=== PATIENT | female | born 1990 | race Caucasian/White ===

== ENCOUNTER 2016-10-13 12:57 | Emergency (ER) | payer OTHER ==
[~2016-10-13] VITALS: Ht 157.5 cm; Wt 71.4 kg
[2016-10-13 14:30] LABS: BASOPHIL % 0.4 % (0-2); PLATELET COUNT 204 x10^3mcL (130-400); RED CELL DISTRIBUTION WIDTH 13.3 % (11.5-14.5)
[2016-10-13 14:39] LABS: CALCIUM 8.6 mg/dL (8.5-10.1); CARBON DIOXIDE 25.9 mmol/L (21-32); CHLORIDE SERUM 107 mmol/L (98-107); CREATININE SERUM 0.6 mg/dL (0.6-1.0); GFR1 > 60 mL/min; GLUCOSE SERUM 103 mg/dL (74-106); POTASSIUM SERUM 3.4 mmol/L (3.5-5.1); SODIUM SERUM 140 mmol/L (136-145)
[2016-10-13 14:43] LABS: ALKALINE PHOSPHATASE 60 U/L (46-116); ALT/SGPT 11 U/L (14-59); AMYLASE 65 U/L (25-115); AST/SGOT 14 U/L (15-37); BILIRUBIN TOTAL 0.97 mg/dL (0.20-1.00); LIPASE 113 IU/L (73-393); TOTAL PROTEIN, SERUM 7.1 g/dL (6.4-8.2)
[2016-10-13 14:46] LABS: ALBUMIN 3.3 g/dL (3.4-5.0)
[2016-10-13 15:37] VITALS: BP 113/67
== END 2016-10-13 15:37 | disposition home or self-care (01) ==
LOC: ED 12:57
PROVIDERS: Specialist
DX: R58 Hemorrhage, not elsewhere classified (principal)
CPT/HCPCS: 83880; J2405; J7030

== ENCOUNTER 2016-11-07 20:05 | Emergency (ER) | payer OTHER ==
[2016-11-07 23:11] VITALS: BP 106/88
== END 2016-11-07 23:11 | disposition home or self-care (01) ==
LOC: ED 20:05
DX: L25.9 Unspecified contact dermatitis, unspecified cause (principal)
CPT/HCPCS: J2930; Q0163